=== PATIENT | male | born 1955 | race African-American/Black ===

== ENCOUNTER 2016-08-22 18:49 | Emergency (ER) | payer OTHER ==
[~2016-08-22] VITALS: Ht 167.6 cm; Wt 66.6 kg
[2016-08-22 18:57] VITALS: TEMP 36.9; Ht 167.6 cm; Wt 66.6 kg
[2016-08-22 19:21] VITALS: BP 152/98; PULSE 76; O2SAT 97
--- NOTE | 2016-08-22 19:57 | EMERGENCY ROOM VISIT NOTE ---
History Report prepared by Kacie: Socorro Veronica Under the Supervision of: Dr. Wily Morris M.D. First contact with patient: 19:06 Chief Complaint: FOREIGNBODY ANY BODY PART Stated Complaint: EAR PLUG IN R EAR History of Present Illness The patient is a 61 year old male who presents to the Emergency Room with complaints of a constant foreign body in the right ear since last night. The patient put an ear plug in his ear last night because he was trying to sleep. The ear plug became stuck in his ear. [facility] is [facility]. He states that they flushed his ear out today, but they were unable to dislodge the ear plug. He did try to pull the plug out and abraded his ear canal. The patient rates his pain as an 8/10 in severity. He does not have any other complaints at this time. He denies fever, nausea, and vomiting. Source of History: patient Onset: last night Position: ear (right) Symptom Intensity: 8/10 Timing: constant Associated Symptoms: No fevers, No nausea, No vomiting Review of Systems See HPI for pertinent positives & negatives. A total of 4 systems reviewed and were otherwise negative. Past Medical & Surgical Medical Problems: (1) No significant medical problems Family History No pertinent history stated. Social History Smoking Status: Current Every Day Smoker Housing Status: other (incarcerated) Occupation Status: other (incarcerated) Physical Exam Vital Signs Date Time Temp Pulse Resp B/P (MAP) Pulse Ox O2 Delivery O2 Flow Rate FiO2 08/22/16 19:21 76 18 152/98 97 Room Air 08/22/16 18:57 36.9 78 18 96 Room Air Physical Exam Constitutional: Vital signs reviewed. Eyes: Pupils are equal round reactive to light. Conjunctiva are noninjected. ENT: Yellow foreign in the right ear canal with abrasion to the anterior portion , no active bleeding. Pharynx is clear without erythema or exudate. Mucous membranes are moist. Neck supple without meningeal signs. Neurological: The patient is awake and alert. No focal deficits. Psychiatric: Normal affect. Medical Decision & Procedures ED Course 1905: The patient was evaluated in room D4B. A complete history and physical exam was performed. At this time I removed the foreign body from the patient's right ear. I discussed the results and treatment plan with the patient. I answered all pertaining questions that he had. He expressed understanding and verbalized agreement. The patient will be discharged back to the senior living. Medical Decision This is a 61-year-old male who presents with a foreign body to his right ear. I did perform a limited focused review of portions of the patient's old chart on the electronic medical record. The patient has had no prior visits to this hospital. Medication Reconciliation: I attest that I have personally reviewed the patient' s current medication list. Blood Pressure Screening: Patient was found to have an elevated blood pressure and was referred to their primary doctor for recheck and further treatment. I did visualize foreign body. There is also an abrasion to the ear where they had attempted to pull out the foreign body. Using bayonet forceps I was able to remove the foreign body in its entirety. Visualization of the ear canal showed some mild erythema but no obvious infection or bleeding. The TM appeared to be intact. There was a hair next to the TM. The patient was advised to follow up with the [facility]. He stated that they were planning on putting him on eardrops. He was discharged back to the senior living. Impression Primary Impression: Foreign body in right ear Scribe Attestation The scribe's documentation has been prepared under my direct and personally reviewed by me in its entirety. I confirm that the note above accurately reflects all work, treatment, procedures, and medical decision making performed by me. Departure Information Dispostion Home / Self-Care Referrals [facility] DOCUMENTATION FORM, IMPORTANT VISIT INFORMATION, WORK / SCHOOL INSTRUCTIONS Patient Instructions ED Foreign Body Ear Canal, My [facility] Additional Instructions Follow up with the [facility] Problem Qualifiers Primary Impression: Foreign body in right ear Encounter type: initial encounter Qualified Codes: T16.1XXA - Foreign body in right ear, initial encounter
== END 2016-08-22 19:35 | disposition home or self-care (01) ==
LOC: C.EDB 18:51 → C.EDD 19:35
DX: T16.1XXA Foreign body in right ear, initial encounter (principal); X58.XXXA Exposure to other specified factors, initial encounter; Y92.149 Unspecified place in prison as the place of occurrence of the external cause; S00.411A Abrasion of right ear, initial encounter; F17.200 Nicotine dependence, unspecified, uncomplicated